=== PATIENT | female | born 1970 | race Caucasian/White ===

== ENCOUNTER → 2022-05-31 10:46 | Outpatient (CLI) | payer BC, SELFPAY ==
--- NOTE | 2022-05-31 | DI.MRI.S_ITS ---
PROCEDURE: MR CERVICAL SPINE WO CON INDICATIONS: Cervicalgia; Pain in thoracic spine TECHNIQUE: Noncontrast sagittal T1 spin echo and T2 fast spin echo, sagittal STIR, foraminal oblique sagittal T2 fast spin echo, and axial gradient echo or T2 fast spin echo through the cervical spine. COMPARISON: [facility], MR, MR THORACIC SPINE WO CON, 05/31/2022, 11:20. FINDINGS: Image quality: Excellent. Alignment and Curvature: There is normal bony alignment. Bone Marrow: Marrow demonstrates normal overall signal. Spinal Cord: Visualized spinal cord has normal size and signal. No cerebellar tonsillar herniation. Paraspinous Soft Tissues: No paravertebral masses. Prevertebral soft tissues are normal in thickness. C2-C3: No canal stenosis or foraminal stenosis. C3-C4: Mild posterior disc bulge. Central canal measures 13 mm in diameter. Prominent right uncovertebral joint osteophyte. C4-C5: Posterior disc bulge. Central canal measures approximately 13 mm in AP diameter. There is bilateral uncovertebral joint hypertrophy and bilateral facet hypertrophy. There is [id number] right foraminal narrowing. There is moderate to severe left foraminal narrowing with left foraminal C5 nerve root impingement. C5-C6: Posterior disc bulge. AP diameter of the canal is 12.3 mm. There is a superimposed left paracentral disc protrusion plus osteophyte. There is impingement on the ventral horn of the left C6 nerve root in the left lateral recess. There is prominent left uncovertebral joint osteophyte. There is moderate right foraminal narrowing and severe left foraminal narrowing. There is severe left foraminal C6 nerve root impingement. C6-C7: No canal stenosis or significant foraminal stenosis. C7-T1: No canal stenosis or foraminal stenosis. IMPRESSION: 1. No central canal stenosis. 2. Multilevel facet hypertrophy and uncovertebral joint hypertrophy. 3. At C4-C5, there is moderate to severe left foraminal narrowing. 4. At C5-C6, left paracentral disc protrusion plus osteophyte results in left lateral recess stenosis. There is severe left foraminal narrowing at this level. Dictated by: Arturo Katz M.D. on 05/31/2022 at 13:31 Approved by: Arturo Katz M.D. on 05/31/2022 at 13:37
--- NOTE | 2022-05-31 | DI.MRI.S_ITS ---
PROCEDURE: MR THORACIC SPINE WO CON INDICATIONS: Cervicalgia; Pain in thoracic spine TECHNIQUE: Noncontrast sagittal T1 spine echo and T2 fast spin echo, sagittal STIR, and T2 fast spin echo through the thoracic spine. COMPARISON: [facility] ([place]), CR, XR THORACIC SPINE 3V, 03/03/2022, 16:22. FINDINGS: Image quality: Excellent. Alignment and Curvature: There is normal bony alignment. Bone Marrow: Since prior study, the T7 compression, which is still [id number] appears to have increased slightly. There is signal abnormality in the anterior aspect of the T7 vertebra, which may potentially represent a persistent degree of sub acuity of the fracture or may represent discogenic endplate signal abnormality. There are old mild compressions of the superior endplate of T4 and T5 with minimal chronic anterior wedging T6. Spinal Cord: There is a small syrinx of the central canal extending from T7-T8 through T9-T10. Paraspinous Soft Tissues: No paravertebral masses. Miscellaneous: On axial images, central canal and foramina appear widely patent at all scanned levels. IMPRESSION: 1. [id number] compression of T7 may have slightly increased since the February 2022 plain films. Signal abnormality anteriorly may potentially represent a persistent degree of subacuity versus discogenic signal abnormality. Suggest correlation with physical examination for presence or absence of significant point tenderness. 2. Chronic compressions or wedging of T4, T5, and T6. 3. Small syrinx. Comment: Consider DEXA bone densitometry. Recommend thoracic spine MRI with without contrast to further evaluate the small syrinx. Dictated by: Arturo Katz M.D. on 05/31/2022 at 12:03 Approved by: Arturo Katz M.D. on 05/31/2022 at 12:16
== END ==
PROVIDERS: PCP Physician Assistant; Referring Provider Physician Assistant Surgical; Visit Provider Physician Assistant Surgical
DX: S22.069A Unspecified fracture of T7-T8 vertebra, initial encounter for closed fracture (principal); M50.122 Cervical disc disorder at C5-C6 level with radiculopathy; M48.02 Spinal stenosis, cervical region; M54.6 Pain in thoracic spine
CPT/HCPCS: 72141; 72146

== ENCOUNTER → 2022-12-27 09:05 | Outpatient (CLI) | payer BC, SELFPAY ==
[2022-12-27 09:48] LABS: Add Manual Diff / Slide Review NO; Basophils Absolute Auto 100 /uL (0-100); Basophils Percent Auto 1.3 % (0-2); Eosinophils Absolute Auto 500 /uL (0-450); Eosinophils Percent Auto 5.8 % (2-4); Hematocrit 41.4 % (36-46); Hemoglobin 14.3 g/dL (12.0-16.0); Lymphocytes Absolute Auto 3400 /uL (1100-4500); Lymphocytes Percent Auto 41.6 % (25-40); Mean Corpuscular HGB Conc 34.6 % (30-36); Mean Corpuscular Hemoglobin 30.6 PG (26-34); Mean Corpuscular Volume 88.6 fL (80-100); Monocytes Absolute Auto 500 /uL (0-900); Monocytes Percent Auto 5.7 % (3-14); Neutrophils Absolute Auto 3700 /uL (1500-7000); Neutrophils Percent Auto 45.6 % (50-75); Platelet Count 313 X10^3/uL (150-400); Red Blood Cell Count 4.67 X10^6/uL (4.0-5.2); White Blood Cell Count 8.1 X10^3/uL (4.5-11.0)
[2022-12-27 09:59] LABS: Hemoglobin A1C% w Est Avg Glu 4.8 % (4.0-6.0)
[2022-12-27 10:17] LABS: BUN Creatinine Ratio 17.3 (6-22); Blood Urea Nitrogen 9 mg/dL (7-17); Calcium 10.2 mg/dL (8.4-10.2); Carbon Dioxide 24 mmol/L (22-32); Chloride 105 mmol/L (98-107); Estimated Glomerular Filt Rate > 60 mL/min (>60); Glucose 87 mg/dL (70-100); HEMOLYSIS < 15 (0-50); Potassium 4.2 mmol/L (3.4-5.1); Sodium 139 mmol/L (137-145)
== END ==
PROVIDERS: PCP Physician Assistant; Referring Provider Orthopaedic Surgery Foot and Ankle Surgery; Visit Provider Orthopaedic Surgery Foot and Ankle Surgery
DX: Z01.818 Encounter for other preprocedural examination (principal); Z01.812 Encounter for preprocedural laboratory examination; R73.9 Hyperglycemia, unspecified
CPT/HCPCS: 36415; 80048; 83036; 85025; 93005

== ENCOUNTER → 2024-06-07 11:32 | Outpatient (CLI) | payer BC, SELFPAY ==
[2024-06-07 20:50] LABS: Add Manual Diff / Slide Review NO; Basophils Absolute Auto 100 /uL (0-100); Basophils Percent Auto 1.2 % (0-2); Eosinophils Absolute Auto 300 /uL (0-450); Eosinophils Percent Auto 4.1 % (2-4); Hematocrit 40.8 % (36-46); Hemoglobin 13.8 g/dL (12.0-16.0); Lymphocytes Absolute Auto 3100 /uL (1100-4500); Lymphocytes Percent Auto 37.6 % (25-40); Mean Corpuscular HGB Conc 33.7 % (30-36); Mean Corpuscular Hemoglobin 30.5 PG (26-34); Mean Corpuscular Volume 90.4 fL (80-100); Monocytes Absolute Auto 400 /uL (0-900); Monocytes Percent Auto 5.4 % (3-14); Neutrophils Absolute Auto 4200 /uL (1500-7000); Neutrophils Percent Auto 51.7 % (50-75); Platelet Count 263 X10^3/uL (150-400); Red Blood Cell Count 4.51 X10^6/uL (4.0-5.2); Red Cell Distribution Width 13.3 % (11.6-14.8); White Blood Cell Count 8.1 X10^3/uL (4.5-11.0)
[2024-06-07 21:13] LABS: Blood Urea Nitrogen 12 mg/dL (7-17); Calcium 9.6 mg/dL (8.4-10.2); Carbon Dioxide 19 mmol/L (22-32); Chloride 108 mmol/L (98-107); Estimated Glomerular Filt Rate > 60 mL/min (>60); Glucose 88 mg/dL (70-100); Sodium 136 mmol/L (137-145)
[2024-06-07 21:16] LABS: HEMOLYSIS 146 (0-50); Potassium 4.9 mmol/L (3.4-5.1)
[2024-06-07 21:41] LABS: TSH w/ Reflex to FT4 2.02 uIU/mL (0.47-4.68)
[2024-06-09 06:09] LABS: Cancer Antigen 27.29 27.4 U/mL (0.0-38.6)
== END ==
PROVIDERS: PCP Family Medicine; Visit Provider Family Medicine
DX: K50.10 Crohn's disease of large intestine without complications (principal); I10 Essential (primary) hypertension; G43.919 Migraine, unspecified, intractable, without status migrainosus; Z85.3 Personal history of malignant neoplasm of breast; Z80.7 Family history of other malignant neoplasms of lymphoid, hematopoietic and related tissues
CPT/HCPCS: 80048; 84443; 85025; 86300